=== PATIENT | female | born 1990 | race Caucasian/White ===

== ENCOUNTER 2020-11-05 02:43 | Emergency (ER) | payer MEDICAID ==
[~2020-11-05] VITALS: Ht 160 cm; Wt 111.6 kg
[2020-11-05 04:06] VITALS: BP 133/79
== END 2020-11-05 04:10 | disposition home or self-care (01) ==
LOC: ER 02:45
DX: S60.512A Abrasion of left hand, initial encounter (principal); X58.XXXA Exposure to other specified factors, initial encounter; Y93.89 Activity, other specified; Y92.89 Other specified places as the place of occurrence of the external cause; Y99.8 Other external cause status
CPT/HCPCS: 73130; 81025

== ENCOUNTER 2020-12-10 07:45 | Emergency (ER) | payer MEDICAID ==
[~2020-12-10] VITALS: Ht 160 cm; Wt 108.9 kg
[2020-12-10 07:48] VITALS: BP 130/63
[2020-12-10] MEDS ORDERED: traMADol HCL 50 MG TAB PO ONE (09:30)
== END 2020-12-10 09:35 | disposition home or self-care (01) ==
LOC: ER 07:45
DX: S93.402A Sprain of unspecified ligament of left ankle, initial encounter (principal); J45.909 Unspecified asthma, uncomplicated; W22.8XXA Striking against or struck by other objects, initial encounter; Y93.89 Activity, other specified; Y92.89 Other specified places as the place of occurrence of the external cause; Y99.8 Other external cause status
CPT/HCPCS: 73610

== ENCOUNTER 2021-02-17 07:16 | Emergency (ER) | payer MEDICAID ==
[~2021-02-17] VITALS: Ht 160 cm; Wt 108.9 kg
[2021-02-17 07:39] VITALS: BP 132/79
== END 2021-02-17 08:46 | disposition home or self-care (01) ==
LOC: ER 07:16
DX: S61.250A Open bite of right index finger without damage to nail, initial encounter (principal); H60.93 Unspecified otitis externa, bilateral; J45.909 Unspecified asthma, uncomplicated; W55.01XA Bitten by cat, initial encounter; Y93.89 Activity, other specified; Y92.89 Other specified places as the place of occurrence of the external cause; Y99.8 Other external cause status